=== PATIENT | female | born 1985 | race Caucasian/White ===

== ENCOUNTER 2017-03-09 18:57 | Emergency (ER) | payer SELFPAY ==
[2017-03-09 19:24] LABS: BILIRUBIN,URINE NEGATIVE (NEGATIVE)
[2017-03-09 19:27] LABS: UA w/ MICROSCOPIC CHARGE YES
[2017-03-09 19:28] LABS: HCG UR QUAL NEGATIVE
[2017-03-09 19:47] LABS: UR CULTURE IF IND INDICATED; WBC,URINE >25 /HPF (0-5)
[2017-03-09] MEDS ORDERED: SULFAMETH/TRIMETH DS 800/160 MG TABLET PO STA (20:04)
[2017-03-09] MEDS ORDERED: PHENAZOPYRIDINE 100 MG TABLET PO STA (20:04)
--- NOTE | 2017-03-09 20:06 | ED Physician Documentation ---
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 - Past Surgical History Past Surgical History: Yes 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 - Present Medications Home Medications: Ambulatory Orders Medication Instructions Recorded Confirmed Ibuprofen 600 mg PO Q8HR PRN 03/09/17 03/09/17 Phenazopyridine HCl [Pyridium] 200 mg PO TID #6 tablet 03/09/17 Sulfamethoxazole/Trimethoprim 1 each PO BID #10 tablet 03/09/17 [Sulfamethoxazole-Tmp Ds Tablet] - Allergies Allergies/Adverse Reactions: Allergies Allergy/AdvReac Type Severity Reaction Status Date / Time Penicillins Allergy Unknown Verified 06/27/16 12:21 - Social History Does the pt smoke?: No Smoking Status: Never smoker Does the pt drink ETOH?: No Does the pt have substance abuse?: No - Immunizations Immunizations are current?: Yes Immunizations: TDAP >10years/unknown PD ED PE NORMAL - Vitals Vital signs reviewed: Yes - General General: Alert and oriented X 3, No acute distress - Abdomen Abdomen: Soft, Non tender - Back Back: Other (Mild right CVA tenderness) - Neuro Neuro: Alert and oriented X 3, Normal speech - Psych Psych: Normal mood, Normal affect Results - Vitals Vitals: Vital Signs - 24 hr 03/09/17 19:03 Temperature 37.0 C Heart Rate 96 Respiratory 20 Rate Blood Pressure 130/86 H O2 Saturation 99 Oxygen O2 Source Room air - Labs Labs: Laboratory Tests 03/09/17 19:17 Urine Color YELLOW Urine Clarity SL. CLOUDY Urine pH 6.0 Ur Specific [place] 1.015 Urine Protein NEGATIVE Urine Glucose (UA) NEGATIVE Urine Ketones NEGATIVE Urine Occult Blood SMALL H Urine Nitrite POSITIVE H Urine Bilirubin NEGATIVE Urine Urobilinogen 0.2 (NORMAL) Ur Leukocyte Esterase SMALL H Urine RBC 6-10 H Urine WBC >25 H Ur Squamous Epith Cells FEW Squamous Urine Bacteria Few Ur Microscopic Review INDICATED Urine Culture Comments INDICATED Urine HCG, Qual NEGATIVE Departure - Departure Disposition: 01 Home, Self Care Clinical Impression: Urinary tract infection Qualifiers: Urinary tract infection type: acute cystitis Hematuria presence: without hematuria Qualified Code(s): N30.00 - Acute cystitis without hematuria Condition: Good Record reviewed to determine appropriate education?: Yes Instructions: ED UTI Cystitis Female Prescriptions: Phenazopyridine HCl [Pyridium] 200 mg PO TID #6 tablet Sulfamethoxazole/Trimethoprim [Sulfamethoxazole-Tmp Ds Tablet] 1 each PO BID # 10 tablet Comments: Call your doctor to arrange a follow-up appointment, make the next available appointment. In the interim, return anytime if worse or if new symptoms develop. We will culture your urine, the results should be done in 48-72 hours. If an antibiotic change is necessary we will call you. Return if worse in the meantime, especially if you develop increasing flank pain, fevers, or cannot keep down the medication. Your blood pressure was elevated today on check into the emergency department. This does not mean that you have hypertension, it is a common phenomenon to come to the emergency department and have elevated blood pressure. I recommend that she see her primary care physician within the week to have it rechecked when you are feeling better.
[2017-03-09] MEDS ORDERED: PHENAZOPYRIDINE 100 MG TABLET PO ONE (20:10)
[2017-03-09] MEDS ORDERED: SULFAMETH/TRIMETH DS 800/160 MG TABLET PO ONE (20:10)
[2017-03-09 20:13] VITALS: BP 114/81
== END 2017-03-09 20:13 | disposition home or self-care (01) ==
LOC: ED 18:57
DX: N30.00 Acute cystitis without hematuria (principal)
CPT/HCPCS: 81001; 81025; 87077; 87086; 87181; 99283; A9270; 81003

== ENCOUNTER 2017-04-24 11:00 | Emergency (ER) | payer OTHER ==
[2017-04-24 11:09] VITALS: BP 134/89
--- NOTE | 2017-04-24 12:19 | XRAY Preliminary Report ---
Exam: XR Hand 3 View RT IMPRESSION: Diffuse soft tissue swelling, most pronounced dorsally. Otherwise normal examination of t he right hand. [facility] SITE ID: [id number]
--- NOTE | 2017-04-24 12:22 | XRAY Report ---
EXAM: RIGHT HAND RADIOGRAPHY 3 VIEWS EXAM DATE: 04/24/2017. CLINICAL HISTORY: Right hand crush injury. COMPARISON: None. TECHNIQUE: PA, oblique and lateral views. FINDINGS: Bones: Normal. No fractures or bone lesions. Joints: Normal. No subluxations. Soft Tissues: Diffuse swelling, most pronounced dorsally. IMPRESSION: Diffuse soft tissue swelling, most pronounced dorsally. Otherwise normal examination of t he right hand. [facility] Referring Provider Line: [phone] SITE ID: [id number]
--- NOTE | 2017-04-24 12:26 | ED Physician Documentation ---
PD HPI UPPER EXT INJURY - Stated complaint Stated Complaint: RT HAND INJ - Chief complaint Chief Complaint: Ext Problem - History obtained from History obtained from: Patient - History of Present Illness Location: Right, Hand Where injury occurred: Work Timing - onset: How many days ago (2) Worsened by: Moving, Palpating Associated symptoms: Swelling, Discolored Similar symptoms before: Has not had sx before - Additonal information Additional information: The patient is a 31-year-old female who crushed her right hand between a pallet and a pallet nasreen 2 days ago while at work. She is right hand dominant. She presents now because of swelling and discoloration of her right hand, in addition to persistent pain. 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 - Present Medications Home Medications: Ambulatory Orders Medication Instructions Recorded Confirmed Ibuprofen 600 mg PO Q8HR PRN 03/09/17 04/24/17 - Allergies Allergies/Adverse Reactions: Allergies Allergy/AdvReac Type Severity Reaction Status Date / Time Penicillins Allergy Unknown Verified 04/24/17 12:17 - Social History Does the pt smoke?: No Smoking Status: Never smoker Does the pt drink ETOH?: No Does the pt have substance abuse?: No - Immunizations Immunizations are current?: Yes Immunizations: TDAP >10years/unknown PD ED PE NORMAL - Vitals Vital signs reviewed: Yes (normal) - General General: Alert and oriented X 3, Well developed/nourished - HEENT HEENT: Atraumatic - Respiratory Respiratory: No respiratory distress - Derm Derm: No rash - Extremities Extremities: Other (There is swelling and ecchymosis over the dorsum of the right hand, with associated mild generalized tenderness to palpation, without focal tenderness. There is no tenderness with axial loading on the individual digits. There is decreased flexion of the fingers due to swelling and discomfort in the dorsum of the hand. She is able to extend her fingers fully. Distal neurovascular is intact.) - Neuro Neuro: Alert and oriented X 3, No motor deficit, No sensory deficit, Normal speech Results - Vitals Vitals: Oxygen O2 Source Room air - Rads (name of study) right hand Radiology: Prelim report reviewed, EMP read contemporaneously, See rad report ( Diffuse soft tissue swelling, most pronounced dorsally. Otherwise normal examination of the right hand.Diffuse soft tissue swelling, most pronounced dorsally. Otherwise normal examination of the right hand.) PD MEDICAL DECISION MAKING - ED course Complexity details: reviewed results, re-evaluated patient, considered differential, d/w patient, other (L&I form was completed.) ED course: The patient's presentation is significant for crush injury of the right hand with swelling and ecchymosis over the dorsal aspect. There is no evidence of fracture or dislocation on x-ray examination. Treatment in the emergency department included administration of acetaminophen 650 mg orally. I discussed with her the expected course of healing, symptomatic treatment and outpatient follow-up, as well as potentially worrisome signs or symptoms that should prompt reevaluation in the emergency department. A labor and industries form was completed. Departure - Departure Disposition: 01 Home, Self Care Clinical Impression: Contusion of hand, right Qualifiers: Encounter type: initial encounter Qualified Code(s): S60.221A - Contusion of right hand, initial encounter Condition: Stable Instructions: ED Contusion Hand Follow-Up: [facility] [Provider Group] Comments: 1. Keep your right hand elevated as much the time as possible. 2. Apply ice pack to right hand intermittently for the next 2 or 3 days. 3. You can use Tylenol or ibuprofen as needed for discomfort. 4. Follow-up with your primary physician if not improving within 2 weeks. 5. Return to the emergency department if you develop markedly increasing pain or swelling or otherwise worsening symptoms. Forms: Activity restrictions Discharge Date/Time: 04/24/17 12:43
[2017-04-24] MEDS ORDERED: ACETAMINOPHEN 325 MG TABLET PO STA (12:32)
[2017-04-24] MEDS ORDERED: ACETAMINOPHEN 325 MG TABLET PO ONE (12:39)
== END 2017-04-24 12:43 | disposition home or self-care (01) ==
LOC: ED 11:00
DX: S60.221A Contusion of right hand, initial encounter (principal); W23.1XXA Caught, crushed, jammed, or pinched between stationary objects, initial encounter; Y92.89 Other specified places as the place of occurrence of the external cause; Y99.0 Civilian activity done for income or pay; E03.9 Hypothyroidism, unspecified
CPT/HCPCS: 1040M; 73130; 99283; A9270

== ENCOUNTER 2017-07-10 09:06 | Emergency (ER) | payer SELFPAY ==
[2017-07-10] MEDS ORDERED: guaiFENesin/DEXTROMETHORPHAN 10 ML UDC PO STA (10:32)
[2017-07-10] MEDS ORDERED: BENZONATATE 100 MG CAPSULE PO STA (10:32)
--- NOTE | 2017-07-10 10:34 | ED Physician Documentation ---
History of Present Illness - Stated complaint Stated Complaint: FEVER/BODYACHE - Chief complaint Chief Complaint: Heent - Additonal information Additional information: hx from pt 31 f 5-6 days of fever cough body aches sore throat no NVD no urinary sx denies preg no travel no sick contacts Review of Systems Constitutional: reports: Fever, Chills, Myalgias Throat: reports: Sore throat Respiratory: reports: Cough GI: denies: Vomiting, Diarrhea : denies: Dysuria, Now EGA Immunocompromised: denies: Immunocompromised PD PAST MEDICAL HISTORY - Past Medical History Endocrine/Autoimmune: HyPOthyroidism GI: None 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 - Past Surgical History Past Surgical History: Yes 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: No Smoking Status: Never smoker Does the pt drink ETOH?: No Does the pt have substance abuse?: No - Immunizations Immunizations are current?: Yes Immunizations: TDAP >10years/unknown PD ED PE NORMAL - Vitals Vital signs reviewed: Yes (tachy) - General General: Alert and oriented X 3 - HEENT HEENT: PERRL, Moist mucous membranes, Pharynx benign - Neck Neck: Supple, no meningeal sign - Cardiac Cardiac: RRR - Respiratory Respiratory: No respiratory distress, Other (dec L base) - Abdomen Abdomen: Soft, Non tender - Derm Derm: Normal color - Neuro Neuro: Alert and oriented X 3 Results - Vitals Vitals: Vital Signs - 24 hr 07/10/17 09:08 Temperature 36.7 C Heart Rate 113 H Respiratory 16 Rate Blood Pressure 129/82 H O2 Saturation 98 Oxygen O2 Source Room air - Labs Labs: Laboratory Tests 07/10/17 07/10/17 10:24 10:24 Influenza A (Rapid) Negative Influenza B (Rapid) Negative Influenza Types A,B Ag - Group A Strep Rapid POSITIVE H - Rads (name of study) CXR Radiology: See rad report (neg) PD MEDICAL DECISION MAKING - ED course ED course: HR noted, will recheck, based on hx and exam feel pt has URI sx but is not septic, do not feel lactate blood cx etc are needed Departure - Departure Disposition: 01 Home, Self Care Clinical Impression: Strep pharyngitis Condition: Good Instructions: ED Strep Pharyngitis Conf Prescriptions: Azithromycin [Zithromax] 250 mg PO DAILY #6 tablet Benzonatate [Tessalon] 100 mg PO TID PRN #20 capsule PRN Reason: to ease cough Dextromethorphan/Benzocaine [Cepacol Sorethroat-Cough Rachna] 1 each PO Q4H PRN # 20 lozenge PRN Reason: sore throat guaiFENesin/DEXTROMETHORPHAN [Robitussin Dm] 10 ml PO Q6H PRN #120 ml PRN Reason: Cough Comments: The xray was fine and the influenza test was negative but your strep test was positive So I have prescribed antibiotics and medication to ease your symptoms Please drink plenty of fluids and rest Forms: Activity restrictions
[2017-07-10] MEDS ORDERED: BENZONATATE 100 MG CAPSULE PO ONE (10:42)
[2017-07-10] MEDS ORDERED: guaiFENesin/DEXTROMETHORPHAN 10 ML UDC ONE (10:42)
[2017-07-10 10:51] LABS: RAPID STREP SCREEN REAGENT QC YELLOW (YELLOW)
--- NOTE | 2017-07-10 11:18 | XRAY Preliminary Report ---
Exam: XR CHEST 2 VIEW PA/LAT IMPRESSION: Negative 2-view chest radiography. [facility] SITE ID: [id number]
--- NOTE | 2017-07-10 11:21 | XRAY Report ---
EXAM: CHEST RADIOGRAPHY EXAM DATE: 07/10/2017 10:57 AM. CLINICAL HISTORY: Fever cough decreased L base. COMPARISON: None. TECHNIQUE: 2 views. FINDINGS: Lungs/Pleura: No focal opacities evident. No pleural effusion. No pneumothorax. Normal volumes. Mediastinum: Heart and mediastinal contours are unremarkable. Other: Negative bony structures. IMPRESSION: Negative 2-view chest radiography. [facility] Referring Provider Line: [phone] SITE ID: [id number]
[2017-07-10 11:57] VITALS: BP 130/82
[2017-07-10] MEDS ORDERED: ACETAMINOPHEN 325 MG TABLET PO ONE (12:12)
[2017-07-10] MEDS ORDERED: ACETAMINOPHEN 325 MG TABLET PO STA (12:30)
== END 2017-07-10 12:31 | disposition home or self-care (01) ==
LOC: ED 09:06
DX: J02.0 Streptococcal pharyngitis (principal)
CPT/HCPCS: 71020; 87275; 87276; 87430; 99283; A9270

== ENCOUNTER 2021-10-23 08:00 | Outpatient (CLI) | payer OTHER, MEDICAID ==
--- NOTE | 2021-10-23 16:16 | XRAY Report ---
PROCEDURE: Humerus LT INDICATIONS: L UPPER EXTREMITY PX TECHNIQUE: 2 views of the humerus were acquired. COMPARISON: None. FINDINGS: BONES: No acute, displaced fracture. The joint spaces are maintained. SOFT TISSUES: No focal abnormality or appreciable pneumothorax. IMPRESSION: 1.No acute osseous abnormality. Reviewed by: Sha Valderrama MD on 10/23/2021 4:15 PM PDT Approved by: Sha Valderrama MD on 10/23/2021 4:15 PM PDT Station ID: [id number]
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
== END 2021-10-23 23:59 ==
LOC: DI.N 08:00
PROVIDERS: ATTEND Nurse Practitioner
DX: M79.603 Pain in arm, unspecified (principal)